=== PATIENT | female | born 1935 | race Caucasian/White ===

== ENCOUNTER 2016-10-02 06:48 | Observation (INO) | payer MEDICARE, OTHER ==
[2016-01-14 06:52] VITALS: BMI 39.4
[2016-10-02] MEDS ORDERED: Levofloxacin 500 mg/100 ml D5W 500 MG/100 ML RTU IV ONE (07:14)
[2016-10-02 07:20] LABS: MPV 9.7 fL (7.4-10.4)
[2016-10-02 07:37] LABS: BLOOD UREA NITROGEN 20 MG/DL (7-17); CALCIUM 12.7 MG/DL (8.4-10.2); CALCULATED OSMOLALITY 276 MOs/Kg (270-290); CHLORIDE 107 mEq/L (98-107); GLUCOSE 105 MG/DL (70-99); SODIUM LEVEL 142 mEq/L (137-146); TOTAL PROTEIN 7.7 G/DL (6.3-8.2)
[2016-10-02] MEDS ORDERED: SESTAMIBI 8 MCI V IV ONE (07:59)
[2016-10-02] MEDS ORDERED: hydrALAZINE 20 MG/ML VIAL IV PRN (08:47)
[2016-10-02] MEDS ORDERED: PROMETHAZINE 25 MG/ML VIAL IV PRN (08:47)
[2016-10-02] MEDS ORDERED: HYDROmorphone 1 MG INJECTION IV PRN ×2 (08:47)
[2016-10-02] MEDS ORDERED: MEPERIDINE 25 MG/ML TUBEX IV PRN (08:47)
[2016-10-02] MEDS ORDERED: ONDANSETRON HCL 4 MG ODT TAB PO PRN (08:47)
[2016-10-02] MEDS ORDERED: LABETALOL 20 MG/4 ML SYRINGE IV PRN (08:47)
[2016-10-02] MEDS ORDERED: FENTANYL 100 MCG/2 ML VIAL IV PRN ×2 (08:47)
[2016-10-02] MEDS ORDERED: ONDANSETRON HCL 4 MG/2 ML VIAL IV PRN ×2 (08:47→16:00)
--- NOTE | 2016-10-02 08:48 | SC.ANESPOS ---
Post-Anesthesia Note LOC: [facility] on Calling Post-Anesthesia Assessment: Awake, Returned to Baseline, Hemodynamically Stable , Pain Control Adequate Phase I & II Recovery Complete: Yes Apparent Anesthesia Complication: No : N - Vital Signs Blood Pressure: 188/88 Pulse: 69 Resp Rate: 18 O2 Sat: 91 Temp: 97.9 F
--- NOTE | 2016-10-02 08:49 | HIM.ANES ---
Anesthesia Evaluation & Plan Diagnoses: HYPERPARATHYROIDISM, UNSPECIFIED (10/02/16) Consented Procedure: EXCISION OF PARATHYROID ADENOMA - Focused Review of Systems Cardiac History: Yes: Hx Hypertension, Hx Cardiac Disorders No: Hx Angina, Hx Heart Attack, Hx Cardiac Catheterization, Hx Angioplasty, Hx Coronary Stent, Hx Pacemaker, Hx Internal Defibrillator, Hx Heart Murmur, Hx Cardia Arrhythmia, Hx Afib/Aflutter, Hx Abdominal Aortic Aneurysm, Hx Abnormal Cholesterol/Hyperlipidemia, Hx Aneurysm, Hx Cardiomegaly, Hx Congestive Heart Failure, Hx Coronary Artery Bypass Graft, Hx Deep Vein Thrombosis, Hx of SVT HEENT: Yes: Cataracts (BILATERAL EYES), Cataract Removal, Hx Vision Problem ( WEARS GLASSES), Other HEENT Problems No: Hx Hearing Impairment, Glaucoma, Macular Degeneration, Hx Dysphagia, Temporomandibular Joint Disease (TMJ), Hx Deviated Septum, Hx Ear Problem Respiratory: Yes: Hx Snoring, Hx Recent Cold/Flu (JULY 2016) No: Hx Asthma, Hx Emphysema, Hx Chronic Obstructive Pulmonary Disease (COPD) , Hx Sleep Apnea, Patient at risk for Sleep apnea (Based on JORGE tool), Hx Home O2, Hx BiPAP Dependent, Hx CPAP Dependent, Hx Pneumonia Gastrointestinal: Yes: Hx Colonoscopy (WITHIN LAST 5 YEARS) No: Hx Gastroesophageal Reflux Disease, Hx Pancreatitis, Hx Gastrointestinal Disorders, Hx Obstructive Bowel, Hx Chronic Constipation, Hx Colitis, Hx Diverticulitis, Hx Diverticulosis, Hx Liver Disease, Hx Endoscopy, Hx Endoscopic Retrograde Cholangio, Hx Esophageal Dilatation Genitourinary: No: Hx Renal Disease, Hx Renal Failure, Hx Dialysis Neurological/Musculoskeletal: No: HX Cerebrovascular Accident, Hx Transient Ischemic Attacks (TIA), Hx Alzheimer's Disease, Hx Dementia, Hx Confusion, Hx Seizures, Hx Syncope, Hx Migraine, Hx Head Trauma, Hx Back Pain, Hx Numbness, Tingling, Weakness in Arms & Legs, Hx Neurological Disorders Physiological: No Hx Anxiety, No Hx Depression, No Hx Mental/Emotional Disorders , No Hx Bipolar Disorder Endocrine: Yes: Hx Hypothyroidism No: Hx Diet Controlled Diabetes, Hx Non-Insulin Dependent Diabetes, Hx Insulin Dependent Diabetes, Hx Hyperthyroidism Blood/Autoimmune: No: Hx Blood Transfusions, Hx Anemia, Hx AIDS, Hx Hepatitis (type) Smoking Status: Never smoker Hx Stress Test (date): Yes (8 YEARS AGO) Hx Echocardiogram (date): No Hx Chest Xray (date): No Surgical History: Yes: Other (MASTECTOMY) No: Ablation, Carotid Endarterectomy, CABG, Appendectomy, Cholecystectomy, Bladder Tact, Ureter Stent, TURP, TURB, Amputation, Back, Hip, Knee Other Surgical History: LEFT MASTECTOMY 1998 - Focused Physical Exam NPO since: 10/01/16 0798 Mallampati: Class III Thyromental Distance: Greater than 3 Neck: Full Range of Motion Dental: Removable Dental Work Cardiovascular/Chest: Normal Respiratory: Decreased breath sounds Any problems with anesthesia, including nausea and vomiting?: No Any relatives with a history of Malignant Hyperthermia?: No Beta Sharita given (if appropriate): Yes Does the patient have a history of Motion Sickness-: Yes Other: Problem List Problem Status Onset Anemia Acute Cancer of right breast, stage 1 Acute Diverticulosis Acute Hypothyroid Acute UTI (urinary tract infection) Acute Ureteral calculus, left Acute Hypertension Chronic CBC/BMP/Other 10/02/16 07:12 10/02/16 07:12 Allergies Allergy/AdvReac Type Severity Reaction Status Date / Time acetaminophen [From Ultracet] Allergy Unknown Verified 10/02/16 07:26 Penicillins Allergy Rash-Genera Verified 10/02/16 07:26 lized tramadol [From Ultracet] Allergy Unknown Verified 10/02/16 07:26 Home Medications Medication Instructions Recorded Last Taken Type Amlodipine [Norvasc] 10 mg PO DAILY 02/14/13 10/01/16 History Carvedilol [Coreg] 25 mg PO BID 02/14/13 10/02/16 04:30 History Levothyroxine Sodium [Synthroid] 112 mcg PO DAILY 02/14/13 09/30/16 History Iron [Niferex Forte] 1 cap PO DAILY 02/24/13 09/30/16 History Aspirin/Calcium Carbonate/Mag 1 tab PO BID 07/19/15 09/24/16 History [Aspirin Buffered 325 mg Tab] Cholecalciferol (Vitamin D3) 2 cap PO DAILY 07/19/15 09/30/16 History [Vitamin D3] Garlic [Odor Free Garlic] 1,000 mg PO DAILY 07/19/15 09/30/16 History Mecobalamin [B-12] 1 tab PO DAILY 07/19/15 09/30/16 History Alendronate Sodium [Fosamax] 70 mg PO FR 01/12/16 09/27/16 History Anastrozole [Arimidex] 1 mg PO DAILY 01/12/16 09/30/16 History Multivits,Ca,Minerals/Iron/FA 1 tab PO DAILY 01/12/16 09/30/16 History [One-A-Day Women's Tablet] Acetaminophen 500 mg PO BID 10/02/16 09/22/16 History Calcium Carbonate/Vitamin D3 1 each PO DAILY 10/02/16 09/30/16 History [Calcium 600 + Vit D Tablet] Fish Oil/Dha/Epa [Fish Oil 1,200 1 each PO DAILY 10/02/16 09/30/16 History mg Fish Oil] Height and Weight Patient's height 5 ft 6 in Patient's weight 240 lb BMI 39.4 Vital Signs Temperature 97.9 F 10/02/16 08:48 Pulse Rate 69 10/02/16 08:48 Respiratory Rate 18 10/02/16 08:48 Blood Pressure 188/88 H 10/02/16 08:48 Pulse Oxygen Saturation 91 10/02/16 08:48 - Anesthetic Plan Anesthesia Type: General ASA Class: 3 -: I have examined this patient and reviewed the medical record. The patient has been assessed prior to anesthesia. Risks and benefits of anesthesia and anesthetic technique options have been discussed and all questions answered. The patient accepts the risk and desires me to proceed with the planned anesthetic.
[2016-10-02] MEDS ORDERED: NEOSTIGMINE 1 MG/1 ML (1:1000) INJ 10 ML MDV IM ONE (10:00)
[2016-10-02] MEDS ORDERED: GLYCOPYRROLATE 1 MG VIAL IM ONE (10:00)
[2016-10-02] MEDS ORDERED: ONDANSETRON HCL 4 MG/2 ML VIAL IV ONE (10:00)
[2016-10-02] MEDS ORDERED: ROCURONIUM 50 MG/5 ML VIAL IV ONE (10:00)
[2016-10-02] MEDS ORDERED: FENTANYL 250 MCG/5 ML VIAL IV ONE (10:00)
[2016-10-02] MEDS ORDERED: DEXAMETHASONE 4 MG/ML VIAL IV ONE (10:00)
[2016-10-02] MEDS ORDERED: PROPOFOL 200 MG/20 ML VIAL IV ONE (10:00)
[2016-10-02] MEDS ORDERED: SUCCINYLCHOLINE 20 MG/1 ML INJ 10 ML MDV IV ONE (10:00)
[2016-10-02] MEDS ORDERED: BUPIVACAINE 0.25% 30 ML VIAL ONE (11:24)
[2016-10-02] MEDS ORDERED: FENTANYL 100 MCG/2 ML VIAL ONE (15:55)
[2016-10-02] MEDS ORDERED: SIMETHICONE 80 MG TAB PO PRN (16:00)
--- NOTE | 2016-10-02 16:15 | HIMOPRPT ---
PROCEDURE: DATE OF PROCEDURE: 10/02/16 PREOPERATIVE DIAGNOSES: parathyroid adenoma / hypercalcemia POSTOPERATIVE DIAGNOSES: Same. PROCEDURE: Excision of right parathyroid adenoma ANESTHESIA: General. COMPLICATIONS: None. ESTIMATED BLOOD LOSS: <5cc OPERATIVE NOTE: The patient was placed supine on the operating table. After induction of anesthesia, the patient was prepped and draped in the usual fashion. A transverse incision was made and once through the skin, electrocautery was utilized to divide the underlying platysma. We then created a flap cephalad and caudad. This exposed the strap muscles. Electrocautery was utilized to divide the midline between the strap muscles. We then began lifting up the strap muscles on the right from the underlying thyroid. We created a plane at this point. Traction was placed medially on the right thyroid lobe. Using both harmonic scalpel and small vascular clips, we did takedown the attachments around the parathyroid gland this was over 1 cm in size. It was located behind the trachea. We were able to get around this. We continued our dissection using both harmonic scalpel and the electrocautery. We were able to identify the recurrent laryngeal nerve on the right and we were able to dissect the thyroid free from it. We left this intact.W removed the parathyroid adenoma and sent this for a frozen section. We irrigated the operative field, suctioned out the irrigation. We repeated this several times. We had anesthesia perform a Valsalva maneuver and there was absolutely no bleeding. . At this point, we went ahead and began closing the midline. We closed the midline using a 3-0 Vicryl. We then began closing the platysma with a Vicryl as well. We then heard back from the pathologist that this was consistent with a parathyroid adenoma. Thus, we went ahead and closed the subcutaneous tissue and approximated the skin edges using 4-0 Monocryl and then Dermabond. The patient tolerated this well. Sponge and needle counts were correct. The patient was taken to the recovery room in stable condition.
[2016-10-02] MEDS ORDERED: IBUPROFEN INTRAVENOUS 800 MG in NS 250 ML IV ONE (16:30)
[2016-10-02] MEDS: LR 1,000 ML IV SCH (16:38)
[2016-10-02] MEDS ORDERED: Vaccine Screening Complete SCH (20:00)
[2016-10-02] MEDS: Docusate Sodium 100 MG CAP PO SCH (20:48)
[2016-10-02] MEDS: CARVEDILOL 25 MG TABLET PO SCH (20:48)
[2016-10-03] MEDS: LR 1,000 ML IV SCH ×2 (05:22→15:32)
--- NOTE | 2016-10-03 08:10 | PCM.SURGRO ---
- Subjective Post Op Day: 1 Patient: Reports: Feels better - Objective / Physical Exam Vital Signs: Temperature: 98.1 F (10/03/16 06:00) HR: 64 (10/03/16 06:00)RR: 18 (10/03/16 06: 00) BP: 138/63 (10/03/16 06:00)Pulse Ox: 94 (10/03/16 06:00) General: Alert, Cooperative HEENT: Normal Respiratory: Normal - CTA Cardiovascular: Regular rate and rhythm Gastrointestinal: Soft. negative: Distended, Tender Back: Normal. negative: Ecchymosis, CVA Tenderness Extremities: negative: Tenderness, Swelling Skin: Warm,Dry and Intact Surgical wound site: Clean/Dry, Approximated. negative: Erythema Laboratory/Diagnostics Reviewed: 10/02/16 07:12 10/02/16 07:12 Laboratory Results - last 24 hr 10/03/16 06:35 Calcium 10.9 H - Assessment and Plan (1) Hypercalcemia Chronic E83.52 - HYPERCALCEMIA Present on Admission: Yes due to parathyroid adenoma. (2) Parathyroid adenoma Chronic D35.1 - BENIGN NEOPLASM OF PARATHYROID GLAND Present on Admission: Yes S/P excision. Stable. Calcium level down. Plan: If able to tolerated diet, will plan to d/c home later today.
[2016-10-03] MEDS: CARVEDILOL 25 MG TABLET PO SCH (08:26)
[2016-10-03] MEDS: Docusate Sodium 100 MG CAP PO SCH (08:26)
[2016-10-03] MEDS ORDERED: AMLODIPINE 10 MG TAB PO SCH (09:00)
[2016-10-03] MEDS ORDERED: LEVOTHYROXINE 112 MCG (0.112 MG) TAB PO SCH (09:00)
[2016-10-03] MEDS ORDERED: ANASTROZOLE 1 MG TAB PO SCH (09:00)
[2016-10-03 14:06] VITALS: BP 122/56; TEMP 98.4
--- NOTE | 2016-10-03 16:24 | CAPUEKG ---
[employer] [employer], [place] Test Date: 2016-10-02 Pat Name: JOVAN MORENO Department: Room: Gender: Female Sba Underwriter: : Requested By: Order Number: Reading MD: Darren Clements Measurements Intervals Pender Rate: 61 P: 64 DC: 222 QRS: 7 QRSD: 94 T: 41 QT: 394 QTc: 396 Interpretive Statements Sinus rhythm with 1st degree AV block Otherwise normal ECG Electronically Signed On 10-03-16 16:23:59 EST by Darren Clements [id number] [id number]
--- NOTE | 2016-10-03 17:03 | PCM.DCS92 ---
- Final/Secondary Discharge Diagnosis (1) Hypercalcemia Resolved E83.52 - HYPERCALCEMIA Present on Admission: Yes (2) Parathyroid adenoma Resolved D35.1 - BENIGN NEOPLASM OF PARATHYROID GLAND Present on Admission: Yes Discharge Disposition: Home Discharge Condition: Stable Cognitive Discharge Status: Unimpaired Fuctional Discharge Status: Independent Diet at Discharge: As Tolerated Activity: As Tolerated - DC Summary Notes Hospital Course Note:: Discharge summary on patient named JOVAN MORENO admitted to [facility] on 10/02/16 by Clyde Young MD. Date of discharge is . Patient had excision of parathyroid adenoma for her hypercalcemia. Her calcium is brandin. She is asymptomatic. She is stable. Will d/c home and follow up in office in 2 weeks. - Physical Exam Vital Signs: Initial Vitals Temperature 97.9 F 10/02/16 07:56 Pulse Rate 69 10/02/16 07:56 Respiratory Rate 18 10/02/16 07:56 Blood Pressure 188/88 H 10/02/16 07:56 Pulse Oxygen Saturation 91 10/02/16 07:56
[2016-10-03 17:30] VITALS: PULSE 64
[2016-10-04] MEDS ORDERED: ALENDRONATE SODIUM 70 MG PO SCH (16:02)
== END 2016-10-03 18:03 | disposition home or self-care (01) ==
LOC: SDC 06:48 → EDSTATUS 10:50 → MPS3 16:34 → INTOOBSV 16:34
PROVIDERS: ADMIT Surgery; ATTEND Surgery
PROC: 0GBR0ZZ Excision of Parathyroid Gland, Open Approach (ICD-10-PCS; principal; 2016-10-02 11:45)
DX: D35.1 Benign neoplasm of parathyroid gland (principal); I10 Essential (primary) hypertension; E21.3 Hyperparathyroidism, unspecified; Z79.899 Other long term (current) drug therapy; Z85.3 Personal history of malignant neoplasm of breast
CPT/HCPCS: 60500; 78808; 80053; 82310; 85027; 93005; A9270; A9500; G0378; J0330; J1100; J1741; J1956; J2405; J2710; J3010; J3490; J7050; S0020